=== PATIENT | male | born 1965 | race Caucasian/White ===

== ENCOUNTER 2019-02-22 08:17 | Observation (INO) | payer OTHER, MEDICAID ==
[~2019-02-22] VITALS: Ht 182.9 cm; Wt 92.0 kg
--- NOTE | 2019-02-22 08:19 | NUR ---
pt presents with reports of pain at the left clavicle from placement of a central line. pt also reports dizziness x 2 days. hx testicular cancer and lymphoma. pt connected to construction sales manager. officer of the law at bedside.
[2019-02-22] MEDS ORDERED: MECLIZINE CHEWABLE 25 MG TAB PO ONE (08:30)
[2019-02-22] MEDS ORDERED: PLEASE ENTER ALLERGIES MC SCH (09:00)
--- NOTE | 2019-02-22 09:18 | NUR ---
brock to access pt port. lab in room to attempt draw
[2019-02-22] MEDS ORDERED: CATHFLO-ALTEPLASE 2 MG/2 ML CATHFLUSH ONE (09:30)
[2019-02-22 10:06] LABS: MEAN CORPUSCULAR HEMOGLOBIN 27.4 pg (27.5-34.5); MEAN CORPUSCULAR HGB CONC 31.9 g/dL (33.2-36.2); MEAN CORPUSCULAR VOLUME 85.9 fL (81-97); MEAN PLATELET VOLUME 7.9 fL (7.4-10.4); PLATELET COUNT 95 x10^3/uL (130-400); RED BLOOD COUNT 4.92 x10^6/uL (4.38-5.82); RED CELL DISTRIBUTION WIDTH 14.1 % (9.4-14.8)
[2019-02-22 10:08] LABS: BASOPHILS # (AUTO) 0.02 x10^3/uL (0-0.1); BASOPHILS % (AUTO) 0 % (0-1); EOSINOPHILS # (AUTO) 0.21 x10^3/uL (0-0.4); EOSINOPHILS % (AUTO) 5 % (1-7); LYMPHOCYTES # (AUTO) 1.37 x10^3/uL (1-3.4); LYMPHOCYTES % (AUTO) 34 % (22-44); MD SCAN; MONOCYTES # (AUTO) 0.48 x10^3/uL (0.2-0.8); MONOCYTES % (AUTO) 12 % (2-9); NEUTROPHILS % (AUTO) 49 % (42-75)
--- NOTE | 2019-02-22 10:22 | NUR ---
lab unable to draw blood. medicated per emar
[2019-02-22] MEDS ORDERED: MECLIZINE CHEWABLE 25 MG TAB ONE (11:08)
--- NOTE | 2019-02-22 11:59 | NUR ---
pt resting on [facility] awaiting results of lab work.
--- NOTE | 2019-02-22 12:07 | NUR ---
IV BOLUS PER ER MD
[2019-02-22 12:17] LABS: ALANINE AMINOTRANSFERASE 16 U/L (12-78); ALBUMIN 3.2 g/dL (3.4-5.0); ANION GAP 8 mmol/L (5-15); CALCIUM 9.2 mg/dL (8.5-10.1); CHLORIDE 107 mmol/L (98-107); CREATININE 1.03 mg/dL (0.7-1.3)
[2019-02-22 12:19] LABS: D-DIMER 1.61 ug/mlFEU (0.00-0.52); INTERNATIONAL NORMALIZED RATIO 1.04 (0.93-1.1); PROTHROMBIN TIME 10.9 Seconds (9.6-11.5)
[2019-02-22 12:20] LABS: ALKALINE PHOSPHATASE 144 U/L (45-117); BILIRUBIN,TOTAL 0.5 mg/dL (0.2-1.0); TOTAL PROTEIN 6.8 g/dL (6.4-8.2)
[2019-02-22] MEDS ORDERED: DIAZEPAM 5 MG TABLET PO ONE (14:00)
--- NOTE | 2019-02-22 14:13 | NUR ---
report given to ANDREW Silva
[2019-02-22] MEDS ORDERED: DIAZEPAM 5 MG TABLET ONE (14:24)
[2019-02-22] MEDS ORDERED: ACET650S21 PO (14:30)
[2019-02-22] MEDS ORDERED: AMIT150T PO (14:30)
[2019-02-22] MEDS ORDERED: MECL12.52 PO (14:30)
[2019-02-22] MEDS ORDERED: PANT20TA3 PO (14:35)
[2019-02-22] MEDS ORDERED: CHOL2000 PO (14:35)
[2019-02-22] MEDS ORDERED: MECO0.5P PO (14:35)
[2019-02-22] MEDS ORDERED: TRAM50TA2 PO (14:35)
[2019-02-22] MEDS ORDERED: METO25TA35 PO (14:35)
[2019-02-22] MEDS ORDERED: POTA20TA14 PO (14:35)
[2019-02-22] MEDS ORDERED: GADOBUTROL 10 MMOL/10 ML PFS ONE (14:46)
[2019-02-22] MEDS ORDERED: hydrALAzine 20 MG/ML, 1ML IVPush PRN (16:00)
[2019-02-22] MEDS ORDERED: ONDANSETRON 2MG/ML, 2ML IVPush PRN (16:00)
[2019-02-22] MEDS ORDERED: DIPHENHYDRAMINE 25 MG CAPSULE PO PRN (16:30)
[2019-02-22] MEDS: predniSONE 50MG TABLET PO PRN ×2 (16:48→22:50)
[2019-02-22] MEDS ORDERED: METOPROLOL TARTRATE 25 MG TABLET ONE (18:45)
[2019-02-22] MEDS: METOPROLOL TARTRATE 25 MG TABLET PO SCH (18:54)
--- NOTE | 2019-02-22 20:50 | NUR ---
Prednisone due at 2300 and 0500.
[2019-02-22] MEDS ORDERED: AMITRIPTYLINE 75 MG TABLET PO SCH (21:00)
[2019-02-22] MEDS ORDERED: ACETAMINOPHEN 325 MG TABLET ONE (22:34)
[2019-02-22] MEDS: ACETAMINOPHEN 325 MG TABLET PO PRN (22:48)
[2019-02-22] MEDS: D5%-0.45NACL+KCL 20MEQ 1,000 ML IV SCH (23:00)
[2019-02-23] MEDS: D5%-0.45NACL+KCL 20MEQ 1,000 ML IV SCH ×2 (01:41→08:17)
[2019-02-23 03:30] VITALS: BP 142/97
[2019-02-23] MEDS: predniSONE 50MG TABLET PO PRN (05:02)
[2019-02-23] MEDS: METOPROLOL TARTRATE 25 MG TABLET PO SCH ×2 (06:00→12:22)
[2019-02-23] MEDS ORDERED: PANTOPROZOLE 40MG TABLET PO SCH (06:00)
[2019-02-23 06:01] LABS: ANION GAP 10 mmol/L (5-15); CALCIUM 9.1 mg/dL (8.5-10.1); CHLORIDE 110 mmol/L (98-107); CREATININE 1.21 mg/dL (0.7-1.3)
[2019-02-23] MEDS: ACETAMINOPHEN 325 MG TABLET PO PRN (06:18)
[2019-02-23] MEDS ORDERED: OMNIPAQUE 350 MG/ML, 100ML BOTTLE ONE (06:28)
[2019-02-23 06:45] LABS: BASOPHILS # (AUTO) 0.01 x10^3/uL (0-0.1); BASOPHILS % (AUTO) 0 % (0-1); EOSINOPHILS # (AUTO) 0.01 x10^3/uL (0-0.4); EOSINOPHILS % (AUTO) 0 % (1-7); LYMPHOCYTES # (AUTO) 0.51 x10^3/uL (1-3.4); LYMPHOCYTES % (AUTO) 20 % (22-44); MD SCAN; MEAN CORPUSCULAR HEMOGLOBIN 28.5 pg (27.5-34.5); MEAN CORPUSCULAR HGB CONC 33.1 g/dL (33.2-36.2); MEAN CORPUSCULAR VOLUME 86.1 fL (81-97); MEAN PLATELET VOLUME 8.8 fL (7.4-10.4); MONOCYTES # (AUTO) 0.05 x10^3/uL (0.2-0.8); MONOCYTES % (AUTO) 2 % (2-9); NEUTROPHILS # (AUTO) 1.97 x10^3/uL (1.8-6.8); NEUTROPHILS % (AUTO) 78 % (42-75); PLATELET COUNT 83 x10^3/uL (130-400); RED BLOOD COUNT 4.23 x10^6/uL (4.38-5.82); RED CELL DISTRIBUTION WIDTH 13.7 % (9.4-14.8)
[2019-02-23 07:58] VITALS: BP 151/96
[2019-02-23] MEDS ORDERED: SENNA/DOCUSATE TABLET PO SCH (09:00)
[2019-02-23 09:30] LABS: OCCULT BLOOD NEGATIVE (NEGATIVE)
[2019-02-23 10:47] LABS: FREE T4 (FREE THYROXINE) 0.88 ng/dL (0.76-1.46)
[2019-02-23 10:52] VITALS: BP 139/93
[2019-02-23 10:53] VITALS: BP 146/97
[2019-02-23 10:56] VITALS: BP 131/99
== END 2019-02-23 15:35 | disposition home or self-care (01) ==
LOC: ED 12:46 → INTOOBSV 14:02 → EDIP 14:02 → 4WST 15:08 → EDIP 16:30 → 4NOR 02-23 02:03
PROVIDERS: ADMIT Internal Medicine; ATTEND Internal Medicine
DX: R42 Dizziness and giddiness (principal); R06.02 Shortness of breath; F41.9 Anxiety disorder, unspecified; K21.9 Gastro-esophageal reflux disease without esophagitis; M54.9 Dorsalgia, unspecified; G89.29 Other chronic pain; I10 Essential (primary) hypertension; F32.9 Major depressive disorder, single episode, unspecified; Z85.47 Personal history of malignant neoplasm of testis; Z85.6 Personal history of leukemia; Z79.899 Other long term (current) drug therapy; Z91.041 Radiographic dye allergy status; Z88.1 Allergy status to other antibiotic agents; Z88.6 Allergy status to analgesic agent; Z91.013 Allergy to seafood; Z88.8 Allergy status to other drugs, medicaments and biological substances
CPT/HCPCS: 36415; 70553; 71045; 71275; 74018; 80048; 80053; 82272; 84439; 84443; 84481; 85025; 85379; 85610; 85730; 93005; 93971; 96360; 96361; 97162; 99284; A9585; G0378; J2997; J3480; J7512; Q0163; Q9967